=== PATIENT | female | born 1990 | race American Indian/Alaskan Native ===

== ENCOUNTER 2016-05-08 15:26 | Emergency (ER) | payer SELFPAY ==
[2016-05-08 15:41] VITALS: BMI 31.2
[2016-05-08 15:49] VITALS: RESP 17; TEMP 98.5; O2SAT 100
[2016-05-08] MEDS ORDERED: Sodium Chloride 0.9% 1,000 ML IV ONE (15:54)
[2016-05-08] MEDS ORDERED: Sodium Chloride 0.9% 1,000 ML ONE (15:57)
--- NOTE | 2016-05-08 16:01 | C.PDOC ---
Time Seen by Provider: 05/08/16 15:52 Chief Complaint (Nursing): Abdominal Pain Past Medical History Vital Signs: Last Vital Signs Temp 98.5 F 05/08/16 15:41 Pulse 92 H 05/08/16 15:41 Resp 17 05/08/16 15:41 BP 111/71 05/08/16 15:41 Pulse Ox 100 05/08/16 15:41 - Medical History PMH: Denies: Depression Family History: States: Unknown Family Hx - Social History Hx Tobacco Use: No Hx Alcohol Use: No (STOPPED WITH ) Hx Substance Use: No - Immunization History Hx Tetanus Toxoid Vaccination: No Hx Influenza Vaccination: No Hx Pneumococcal Vaccination: No ED Course And Treatment O2 Sat by Pulse Oximetry: 100
--- NOTE | 2016-05-08 16:03 | C.PDOC ---
History Of Present Illness 26 year old patient presents to the emergency department complaining of lower left quadrant abdominal pain since yesterday. Patient is 9 weeks ; 2 Para 1. Patient states the pain is intermittent and has a pressure sensation. Patient also complains of lower back pain. Patient noted brownish- pink discharge yesterday when she used the bathroom. 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 Patient denies fever, chest pain, shortness of breath, nausea, vomiting, diarrhea, urinary symptoms, incontinence, numbness or weakness. Time Seen by Provider: 05/08/16 15:52 Chief Complaint (Nursing): Abdominal Pain History Per: Patient History/Exam Limitations: no limitations Onset/Duration Of Symptoms: Days (1) Current Symptoms Are (Timing): Still Present Context: Other Severity: Mild Pain Scale Rating Of: 3 Location Of Pain/Discomfort: LLQ Radiation Of Pain To:: Back Quality Of Discomfort: "Pain" Exacerbating Factors: None Alleviating Factors: None Last Bowel Movement: Today Recent travel outside of the [place]: No Additional History Per: Prior Records Abnormal Vaginal Bleeding: No : 2 Para: 1 Past Medical History Reviewed: Historical Data, Nursing Documentation, Vital Signs Vital Signs: Last Vital Signs Temp 98.5 F 05/08/16 15:41 Pulse 92 H 05/08/16 15:41 Resp 17 05/08/16 15:41 BP 111/71 05/08/16 15:41 Pulse Ox 100 05/08/16 18:09 - Medical History PMH: No Chronic Diseases Family History: States: Unknown Family Hx - Social History Hx Tobacco Use: No Hx Alcohol Use: No (STOPPED WITH ) Hx Substance Use: No - Immunization History Hx Tetanus Toxoid Vaccination: No Hx Influenza Vaccination: No Hx Pneumococcal Vaccination: No Review Of Systems Except As Marked, All Systems Reviewed And Found Negative. Constitutional: Negative for: Fever Cardiovascular: Negative for: Chest Pain Respiratory: Negative for: Shortness of Breath Gastrointestinal: Positive for: Abdominal Pain. Negative for: Nausea, Vomiting , Diarrhea Genitourinary: Positive for: Vaginal Discharge. Negative for: Dysuria, Frequency, Incontinence Musculoskeletal: Positive for: Back Pain Neurological: Negative for: Weakness, Numbness Physical Exam - Physical Exam Appears: Non-toxic, No Acute Distress Skin: Warm, Dry Head: Atraumatic, Normacephalic Eye(s): bilateral: Normal Inspection, EOMI Neck: Normal ROM, Supple Chest: Symmetrical Cardiovascular: Rhythm Regular, No Murmur Respiratory: Normal Breath Sounds, No Rales, No Rhonchi, No Wheezing Gastrointestinal/Abdominal: Soft, No Tenderness, No Guarding, No Rebound Back: Normal Inspection, No CVA Tenderness Extremity: Normal ROM Neurological/Psych: Oriented x3, Normal Speech Gait: Steady ED Course And Treatment - Laboratory Results Result Diagrams: 05/08/16 16:08 05/08/16 16:08 Lab Interpretation: No Acute Changes O2 Sat by Pulse Oximetry: 100 (RA) Pulse Ox Interpretation: Normal - CT Scan/US OB US Other Rad Studies (CT/US): Read By Radiologist, Radiology Report Reviewed CT/US Interpretation: Creator : Filemon Perez MD. Dictator : Filemon Perez MD. Drip Molder : Senior Electronics Technician : Filemon Perez MD. Approver2 : Report Date : 05/08/2016 17:55:24. My Comment : . Ob ultrasound 2016. History: . Sonographic evaluation of the gravid uterus performed. Findings: The uterus anteverted measuring approximately 9.3 x 5.7 x 7.1 cm. Cervix is closed measuring 4.04 cm. There is a living intrauterine gestation. No evidence to suggest subchorionic hemorrhage. Measurements: Gestational sac: MSD = 3.44 cm = 8 weeks 4 days. Yolk sac: Not visible. pole: CRL = 2.3 cm = 9 weeks 0 days. Heart motion detected at 172 BPM. Average ultrasound age = 8 weeks 6 days +/- 0 weeks 4 days. No free fluid seen in the cul de sac. Ovaries exhibit arterial flow. Small follicular cyst right ovary. Impression: Living intrauterine gestation with average ultrasound age of 8 weeks 6 days +/-0 weeks 4 days. Cardiac activity documented at 172 BPM. Medical Decision Making Medical Decision Making: Impression: 26 year old patient 9 weeks with suprapubic pain Plan: * Labs * IV fluids * Transvaginal US Re-assessment: On reevaluation patient resting comfortably in bed talking to her friend at bedside. She has no fever and stable vital signs. Explained all results and provide copy of reports to patient. Advise follow up with her ob.center medical director Dr Gomez. Disposition Counseled Patient/Family Regarding: Diagnosis, Need For Followup - Disposition Referrals: Kae Gomez MD [Staff Provider] - Disposition: HOME/ ROUTINE Disposition Time: 18:08 Condition: STABLE Additional Instructions: Please follow up with your ob.center medical director for further evaluation Instructions: Threatened Miscarriage (ED) - POA Present On Arrival: None - Clinical Impression Clinical Impression: Threatened miscarriage - PA / LICENSED STAFF MFT / Resident Statement MD/DO has reviewed & agrees with the documentation as recorded. - Scribe Statement The provider has reviewed the documentation as recorded by the Scribe Jania Gomez All medical record entries made by the Scribe were at my direction and personally dictated by me. I have reviewed the chart and agree that the record accurately reflects my personal performance of the history, physical exam, medical decision making, and the department course for this patient. I have also personally directed, reviewed, and agree with the discharge instructions and disposition.
[2016-05-08 16:13] LABS: BASO % 0.7 % (0.0-2.0); EOS # 0.1 K/uL (0.0-0.7); EOS % 1.3 % (0.0-4.0); HEMATOCRIT 35.5 % (34.0-47.0); LYMPH # 1.4 K/uL (1.0-4.3); LYMPH % 22.9 % (20.0-40.0); MEAN CELL VOLUME 79.3 fL (81.0-99.0); MEAN CORPUSCULAR HEMOGLOBIN 27.4 pg (27.0-31.0); MEAN CORPUSCULAR HGB CONC 34.6 g/dL (33.0-37.0); MEAN PLATELET VOLUME 8.2 fL (7.2-11.7); MONO # 0.5 K/uL (0.0-0.8); MONO % 9.1 % (0.0-10.0); RED CELL DISTRIBUTION WIDTH 13.8 % (11.5-14.5); WHITE BLOOD COUNT 5.9 K/uL (4.8-10.8)
[2016-05-08 16:20] LABS: CHLORIDE 100 mmol/L (98-107)
[2016-05-08 16:21] LABS: POTASSIUM 3.7 mmol/L (3.6-5.2); SODIUM 135 mmol/L (132-148)
[2016-05-08 16:23] LABS: ALB/GLOB RATIO 1.3 (1.0-2.1); AST/SGOT 18 U/L (14-36); BILIRUBIN,TOTAL 0.4 mg/dL (0.2-1.3); BLOOD UREA NITROGEN 7 mg/dL (7-17); CARBON DIOXIDE 26 mmol/L (22-30); GFR AFRICAN-AMERICAN > 60; TOTAL PROTEIN 7.3 g/dL (6.3-8.3)
[2016-05-08 16:24] LABS: ALKALINE PHOSPHATASE 33 U/L (38-126); ALT/SGPT 24 U/L (9-52); GLUCOSE,RANDOM 95 mg/dL (65-105)
[2016-05-08 17:23] LABS: RBC URINE 4 /hpf (0-3); URINE BACTERIA RARE (<OCC); URINE BILIRUBIN NEGATIVE (NEGATIVE); URINE BLOOD NEGATIVE (NEGATIVE); URINE COLOR Yellow (YELLOW); URINE GLUCOSE (UA) NORMAL (Normal); URINE KETONE NEGATIVE (NEGATIVE); URINE LEUKOCYTE ESTERASE TRACE Leu/uL (Negative); URINE PROTEIN NEGATIVE (NEGATIVE); URINE UROBILINOGEN NORMAL mg/dL (0.2-1.0); WBC URINE 11 /hpf (0-5)
--- NOTE | 2016-05-08 17:57 | US ---
Ob ultrasound 05/08/2016. History: . Sonographic evaluation of the gravid uterus performed Findings: The uterus anteverted measuring approximately 9.3 x 5.7 x 7.1 cm. Cervix is closed measuring 4.04 cm. There is a living intrauterine gestation. No evidence to suggest subchorionic hemorrhage. Measurements: Gestational sac: MSD = 3.44 cm = 8 weeks 4 days Yolk sac: Not visible pole: CRL = 2.3 cm = 9 weeks 0 days Heart motion detected at 172 BPM Average ultrasound age = 8 weeks 6 days +/- 0 weeks 4 days No free fluid seen in the cul de sac. Ovaries exhibit arterial flow. Small follicular cyst right ovary. Impression: Living intrauterine gestation with average ultrasound age of 8 weeks 6 days +/-0 weeks 4 days Cardiac activity documented at 172 BPM.
[2016-05-08 18:40] VITALS: BP 109/69; PULSE 80
== END 2016-05-08 18:39 | disposition home or self-care (01) ==
LOC: C.ER 15:26
DX: O20.0 Threatened abortion (principal); Z3A.09 9 weeks gestation of pregnancy
CPT/HCPCS: 76815; 80053; 81001; 84702; 84703; 85025; 96360; 99285; J7040

== ENCOUNTER 2016-05-16 15:03 | Emergency (ER) | payer SELFPAY ==
[2016-05-16 15:03] VITALS: BMI 31.2
[2016-05-16 15:49] VITALS: TEMP 98.1; O2SAT 98
[2016-05-16] MEDS ORDERED: Sodium Chloride 0.9% 500 ML IV ONE (16:45)
--- NOTE | 2016-05-16 17:13 | C.PDOC ---
History Of Present Illness 26 y/o female presents to the ED complaining of vaginal bleeding since last night. She states that she is 10 weeks , . Patient also notes some mild pelvic pain. denies any back pain, fever, vomiting, dysuria, or other complaints. Time Seen by Provider: 05/16/16 16:45 Chief Complaint (Nursing): Female Genitourinary History Per: Patient History/Exam Limitations: no limitations Onset/Duration Of Symptoms: Days (1), Gradual, Persistent Current Symptoms Are (Timing): Still Present Recent travel outside of the [place]: No Past Medical History Reviewed: Historical Data, Nursing Documentation, Vital Signs Vital Signs: Last Vital Signs Temp 98.1 F 05/16/16 15:46 Pulse 90 05/16/16 19:05 Resp 18 05/16/16 19:05 BP 113/70 05/16/16 19:05 Pulse Ox 98 05/19/16 19:15 - Medical History PMH: No Chronic Diseases Surgical History: No Surg Hx Family History: States: Unknown Family Hx - Social History Hx Tobacco Use: No Hx Alcohol Use: No Hx Substance Use: No - Immunization History Hx Tetanus Toxoid Vaccination: No Hx Influenza Vaccination: No Hx Pneumococcal Vaccination: No Review Of Systems Except As Marked, All Systems Reviewed And Found Negative. Constitutional: Negative for: Fever Gastrointestinal: Negative for: Vomiting Genitourinary: Positive for: Vaginal Bleeding, Pelvic Pain. Negative for: Dysuria Musculoskeletal: Negative for: Back Pain Physical Exam - Physical Exam Appears: Non-toxic, No Acute Distress Skin: Normal Color, Warm, Dry Head: Atraumatic, Normacephalic Eye(s): bilateral: Normal Inspection, EOMI Nose: Normal Neck: Normal ROM Chest: Symmetrical Cardiovascular: Rhythm Regular Respiratory: Normal Breath Sounds, No Accessory Muscle Use Gastrointestinal/Abdominal: Normal Exam, Soft, No Tenderness Back: Normal Inspection, No CVA Tenderness Extremity: Normal ROM Neurological/Psych: Oriented x3, Normal Speech, Normal Cognition ED Course And Treatment - Laboratory Results Result Diagrams: 05/16/16 18:16 05/16/16 18:16 O2 Sat by Pulse Oximetry: 98 (ra) Pulse Ox Interpretation: Normal - CT Scan/US Ultrasound Other Rad Studies (CT/US): Read By Radiologist (Naveen Couch), Radiology Report Reviewed CT/US Interpretation: FINDINGS: LMP 03/07/2016. UTERUS: Gestational sac: Single intrauterine gestation. Heart rate: 146 bpm. age ( Ultrasound estimated): 9 weeks 6 days +/- 0 weeks 5 days. [place]aine-gestational hemorrhage: None. Date of delivery (Ultrasound estimated) : 12/13/2016. Uterus measures 10 x 6 x 7.2 cm. Normal in size and appearance. CERVIX: Long and closed. No cervical abnormality seen. RIGHT OVARY: Measures 3.7 x 1.6 x 4.4 cm. No mass lesion. Normal flow. Small is cyst seen at the right ovary. LEFT OVARY: Measures 3.5 x 1.4 x 2.6 cm. No solid mass. Normal flow. FREE FLUID: None. OTHER FINDINGS: None. IMPRESSION: Single intrauterine live with ultrasound estimated gestational age of 9 weeks 6 days +/- 0 weeks 5 days. Estimated date of delivery by ultrasound is 12/12/2016. Subcentimeter echogenic lesion at the right ovary may represent hemorrhagic cyst. Progress Note: Plan: Ultrasound, Blood Work, Urinalysis, Urine Culture, Urine HCG, IV Fluids. Patient is refusing pain medication. Patient is resting comfortably and in no acute distress. Denies any further complaints at this time. Advised to follow up with OB/ ER in 2-3 days for repeat evaluation/labs. Discussed with pt signs of concern for spontaneous and UTI, instructed strict follow up and return to ER if symptoms persist or worsen. Pt treated wit Macrobid for UA results. Disposition - Disposition Referrals: [facility] [Outside] Disposition: HOME/ ROUTINE Disposition Time: 18:56 Condition: STABLE Additional Instructions: Follow up with your OBGYN / ED in 2-3 days for further evaluation and repeat lab testing. Return to the emergency department at any time if symptoms persist or worsen. Prescriptions: Nitrofurantoin Macrocrystals [Macrobid] 1 cap PO BID #14 cap Instructions: Threatened Miscarriage (ED) - Clinical Impression Clinical Impression: Threatened miscarriage, UTI (urinary tract infection) - PA / INTERNATIONAL TRADE ANALYST / Resident Statement MD/DO has reviewed & agrees with the documentation as recorded. - Scribe Statement The provider has reviewed the documentation as recorded by the Scribe (Jennifer Casillas) All medical record entries made by the Scribe were at my direction and personally dictated by me. I have reviewed the chart and agree that the record accurately reflects my personal performance of the history, physical exam, medical decision making, and the department course for this patient. I have also personally directed, reviewed, and agree with the discharge instructions and disposition.
[2016-05-16 18:20] LABS: BASO % 0.5 % (0.0-2.0); EOS # 0.1 K/uL (0.0-0.7); EOS % 1.1 % (0.0-4.0); HEMATOCRIT 35.3 % (34.0-47.0); LYMPH # 1.6 K/uL (1.0-4.3); LYMPH % 23.9 % (20.0-40.0); MEAN CELL VOLUME 80.2 fL (81.0-99.0); MEAN CORPUSCULAR HEMOGLOBIN 27.3 pg (27.0-31.0); MEAN CORPUSCULAR HGB CONC 34.1 g/dL (33.0-37.0); MEAN PLATELET VOLUME 8.5 fL (7.2-11.7); MONO # 0.7 K/uL (0.0-0.8); MONO % 9.5 % (0.0-10.0); RED CELL DISTRIBUTION WIDTH 13.8 % (11.5-14.5); WHITE BLOOD COUNT 6.9 K/uL (4.8-10.8)
[2016-05-16 18:29] LABS: CHLORIDE 96 mmol/L (98-107)
[2016-05-16 18:30] LABS: POTASSIUM 3.9 mmol/L (3.6-5.2); SODIUM 134 mmol/L (132-148)
[2016-05-16 18:32] LABS: BILIRUBIN,TOTAL 0.2 mg/dL (0.2-1.3); CARBON DIOXIDE 26 mmol/L (22-30); GFR AFRICAN-AMERICAN > 60
[2016-05-16 18:33] LABS: ALB/GLOB RATIO 1.4 (1.0-2.1); ALKALINE PHOSPHATASE 35 U/L (38-126); ALT/SGPT 11 U/L (9-52); AST/SGOT 34 U/L (14-36); BLOOD UREA NITROGEN 8 mg/dL (7-17); CALCIUM 8.9 mg/dl (8.6-10.4); GLUCOSE,RANDOM 93 mg/dL (65-105)
--- NOTE | 2016-05-16 18:38 | US ---
PROCEDURE: OB Pelvic Ultrasound HISTORY: pain bleeding COMPARISON: None available. FINDINGS: LMP 03/07/2016 UTERUS: Gestational sac: Single intrauterine gestation. Heart rate: 146 bpm. age (Ultrasound estimated): 9 weeks 6 days +/- 0 weeks 5 days. [place]-gestational hemorrhage: None. Date of delivery (Ultrasound estimated) : 12/13/2016 Uterus measures 10 x 6 x 7.2 cm. Normal in size and appearance. CERVIX: Long and closed. No cervical abnormality seen. RIGHT OVARY: Measures 3.7 x 1.6 x 4.4 cm. No mass lesion. Normal flow. Small is cyst seen at the right ovary. LEFT OVARY: Measures 3.5 x 1.4 x 2.6 cm. No solid mass. Normal flow. FREE FLUID: None. OTHER FINDINGS: None. IMPRESSION: Single intrauterine live with ultrasound estimated gestational age of 9 weeks 6 days +/- 0 weeks 5 days. Estimated date of delivery by ultrasound is 12/12/2016. Subcentimeter echogenic lesion at the right ovary may represent hemorrhagic cyst.
[2016-05-16 18:55] LABS: RBC URINE 14 /hpf (0-3); URINE BACTERIA MANY (<OCC); URINE BILIRUBIN NEGATIVE (NEGATIVE); URINE BLOOD 2+ (NEGATIVE); URINE COLOR Yellow (YELLOW); URINE GLUCOSE (UA) NORMAL (Normal); URINE KETONE NEGATIVE (NEGATIVE); URINE LEUKOCYTE ESTERASE 2+ Leu/uL (Negative); URINE PROTEIN NEGATIVE (NEGATIVE); URINE UROBILINOGEN NORMAL mg/dL (0.2-1.0); WBC URINE 14 /hpf (0-5)
[2016-05-16 19:06] VITALS: BP 113/70; PULSE 90; RESP 18
== END 2016-05-16 19:38 | disposition home or self-care (01) ==
LOC: C.ER 15:03
DX: O20.0 Threatened abortion (principal); O23.41 Unspecified infection of urinary tract in pregnancy, first trimester; B96.89 Other specified bacterial agents as the cause of diseases classified elsewhere; Z3A.10 10 weeks gestation of pregnancy
CPT/HCPCS: 76801; 80053; 81001; 84702; 84703; 85025; 86850; 86900; 87086; 99284; J7040

== ENCOUNTER 2016-08-21 17:05 | Emergency (ER) | payer OTHER ==
--- NOTE | 2016-08-21 17:41 | OBHP ---
Datetime: 08/21/2016 17:29 IP Adm Impression: , intrauterine ; No Active Labor IP Adm Impression Other: No evidence of ruptured membranes IP Admit Plan: Discharge home Admit Comment, IP Provider: 26yo with IUP at 23wks, Cerclage in place for the current , presents here today c/o whitish vaginal discharge since yesterday. She denies any VB. Pt had cerlag e placed for cervical dilatation in early at [facility]. [place]- None, FHR- Regular, Speculum exam: No gross pooling, Nitrazine is negative. Cerclage seen an d intact. Assessment: IUP at 23wks. No evidence of Rupture membranes on exam. Plan as per Dr Gomez. D/C home. F/U with Dr Gomez within 1 week. Pelvic Type - PN: Adequate Extremities - PN: Normal Abdomen - PN: Normal Back - PN: Normal Breast - PN: Normal Lungs - PN: Normal Heart - PN: Normal Thyroid - PN: Normal Neurologic - PN: Normal HEENT - PN: Normal General - PN: Normal FHR - Baseline A Provider: 150 Membranes, Provider: Intact Contraction Comments Provider: None Comments, ACOG Physical Exam: Abd: Soft, NT, BS- present. Gestation - Est Wks by US: 23.0 Pool Provider: Negative Nitrazine Provider: Negative EGA AdmitDate IP: 23.6 Vital Signs Provider: Reviewed IP Chief Complaint: Suspected ruptured membranes NICHD Variability Prov Fetus A: Moderate 6-25bpm NICHD Accel Fetus A IP Provider: [id number] FHR Category Provider Fetus A: Category I NICHD Decel Fetus A IP Provider: None Dilatation, Provider: 0 Genitourinary Exam: Normal DTRs - PN: Normal
== END 2016-08-21 17:24 | disposition home or self-care (01) ==
LOC: C.EROB 17:05
DX: O26.892 Other specified pregnancy related conditions, second trimester (principal); Z3A.23 23 weeks gestation of pregnancy